=== PATIENT | male | born 1965 | race Caucasian/White ===

== ENCOUNTER 2017-11-21 10:21 | Emergency (ER) | payer SELFPAY ==
[~2017-11-21] VITALS: Ht 162.6 cm; Wt 70.0 kg
[2017-11-21] MEDS ORDERED: ONDANSETRON HCL 4MG/2ML VIAL IV STA (12:18)
[2017-11-21] MEDS ORDERED: SODIUM CHLORIDE 0.9% 1,000 ML IV ONE (12:18)
[2017-11-21 12:48] LABS: BASOPHILS % 1.4 % (0.0-2.0); EOSINOPHILS % 0.9 % (0.0-5.0); HEMATOCRIT. 35.7 % (42.0-52.0); HEMOGLOBIN. 10.9 g/dL (14.0-18.0); LYMPHOCYTES % 38.7 % (20.0-50.0); MEAN CORPUSCULAR HEMOGLOBIN 22.3 pg (28.0-32.0); MEAN CORPUSCULAR VOLUME 73.1 fL (80.0-94.0); MEAN PLATELET VOLUME 7.1 fl (7.4-10.4); MONOCYTES % 7.5 % (2.0-8.0); NEUTROPHILS % 51.5 % (40.0-76.0); PLATELET 248 x1000/uL (130-400); RED BLOOD CELL COUNT 4.88 mill/uL (4.7-6.1); RED CELL DISTRIBUTION WIDTH 19.9 % (11.6-14.6)
[2017-11-21 12:55] LABS: CLARITY URINE CLEAR (CLEAR); COLOR URINE YELLOW (YELLOW); KETONES URINE NEGATIVE (NEGATIVE); LEUKOCYTE ESTERASE URINE NEGATIVE (NEGATIVE); NITRITE URINE NEGATIVE (NEGATIVE); OCCULT BLOOD URINE TRACE (NEGATIVE); PH URINE 5.5 (4.5-8.0); PROTEIN URINE 1+ (NEGATIVE); SPECIFIC GRAVITY URINE 1.017 (1.005-1.030); UROBILINOGEN URINE 0.2 E.U./dL (0.2-1.0)
[2017-11-21 12:56] LABS: INR 1.1
[2017-11-21 12:59] LABS: CHLORIDE 98 mEq/L (98-107)
[2017-11-21] MEDS ORDERED: FAMOTIDINE 20MG/2ML VIAL IV ONE (13:00)
[2017-11-21] MEDS ORDERED: MAGNESIUM/ALUMINUM HYDROXIDE/SIMETHICONE 30ML UDC PO ONE (13:00)
[2017-11-21 13:01] LABS: AMMONIA < 25 uMol/L (<32)
[2017-11-21 13:05] LABS: CREATINE KINASE 233 IU/L (39-308); TROPONIN I < 0.02 ng/mL (0.00-0.04)
[2017-11-21 13:16] LABS: *BARBITURATES SCREEN URINE NEGATIVE (NEGATIVE); *BENZODIAZEPINES SCREEN URINE NEGATIVE (NEGATIVE); *COCAINE SCREEN URINE NEGATIVE (NEGATIVE); METHADONE URINE SCREEN NEGATIVE (NEGATIVE); OPIATES URINE SCREEN NEGATIVE (NEGATIVE); PHENCYCLIDINE URINE SCREEN NEGATIVE (NEGATIVE)
[2017-11-21 13:21] LABS: ETHANOL BLOOD 403 mg/dL
[2017-11-21 14:15] LABS: *AMPHETAMINES SCREEN URINE NEGATIVE (NEGATIVE); CANNABINOID URINE SCREEN NEGATIVE (NEGATIVE)
[2017-11-21 18:35] VITALS: BP 154/96
== END 2017-11-21 19:12 | disposition home or self-care (01) ==
LOC: ER 10:21
DX: K29.20 Alcoholic gastritis without bleeding (principal); R56.9 Unspecified convulsions; E11.9 Type 2 diabetes mellitus without complications; F10.20 Alcohol dependence, uncomplicated; Z87.442 Personal history of urinary calculi; Z87.891 Personal history of nicotine dependence; Y90.8 Blood alcohol level of 240 mg/100 ml or more
CPT/HCPCS: 36415; 70450; 71045; 80053; 80305; 81003; 82140; 82550; 82962; 83880; 84443; 84484; 85025; 85610; 93005; 96361; 96374; 96375; 99285; G0482; J2405; J3490; J7030

== ENCOUNTER 2018-03-20 19:10 | Emergency (ER) | payer SELFPAY ==
[~2018-03-20] VITALS: Ht 167.6 cm; Wt 157.0 kg
[2018-03-20] MEDS ORDERED: SODIUM CHLORIDE 0.9% 1,000 ML IV ONE (23:16)
[2018-03-20] MEDS ORDERED: KETOROLAC 30MG/ML VIAL IV STA (23:16)
[2018-03-21 00:02] LABS: BASOPHILS % 0.3 % (0.0-2.0); EOSINOPHILS % 0.9 % (0.0-5.0); HEMATOCRIT. 29.8 % (42.0-52.0); HEMOGLOBIN. 9.4 g/dL (14.0-18.0); LYMPHOCYTES % 33.2 % (20.0-50.0); MEAN CORPUSCULAR HEMOGLOBIN 24.3 pg (28.0-32.0); MEAN CORPUSCULAR VOLUME 76.8 fL (80.0-94.0); MEAN PLATELET VOLUME 6.7 fl (7.4-10.4); NEUTROPHILS % 55.6 % (40.0-76.0); PLATELET 260 x1000/uL (130-400); RED BLOOD CELL COUNT 3.88 mill/uL (4.7-6.1); RED CELL DISTRIBUTION WIDTH 22.4 % (11.6-14.6)
[2018-03-21 00:08] LABS: CHLORIDE 98 mEq/L (98-107)
[2018-03-21 00:10] LABS: INR 1.1; PROTHROMBIN TIME 11.2 sec (9.4-11.6)
[2018-03-21 00:12] LABS: ETHANOL BLOOD 291 mg/dL
[2018-03-21 04:39] VITALS: BP 115/78
== END 2018-03-21 04:40 | disposition home or self-care (01) ==
LOC: ER 19:10
DX: E11.621 Type 2 diabetes mellitus with foot ulcer (principal); L97.529 Non-pressure chronic ulcer of other part of left foot with unspecified severity; F10.229 Alcohol dependence with intoxication, unspecified; D64.9 Anemia, unspecified; Y90.8 Blood alcohol level of 240 mg/100 ml or more
CPT/HCPCS: 36415; 73630; 80053; 85025; 85610; 96361; 96374; 99285; G0482; J1885; J7030

== ENCOUNTER 2018-04-03 07:57 | Emergency (ER) | payer SELFPAY ==
[~2018-04-03] VITALS: Ht 170.2 cm; Wt 79.0 kg
[2018-04-03 12:19] VITALS: BP 134/78
== END 2018-04-03 12:21 | disposition home or self-care (01) ==
LOC: ER 07:57
DX: Z48.00 Encounter for change or removal of nonsurgical wound dressing (principal); M79.672 Pain in left foot; E11.9 Type 2 diabetes mellitus without complications
CPT/HCPCS: 99281

== ENCOUNTER 2018-06-05 10:16 | Inpatient (IN) | payer SELFPAY ==
[~2018-06-05] VITALS: Ht 160 cm; Wt 73.6 kg
[2018-06-05] MEDS ORDERED: SODIUM CHLORIDE 0.9% 1,000 ML IV ONE (11:08)
[2018-06-05] MEDS ORDERED: KETOROLAC 30MG/ML VIAL IV STA (11:08)
[2018-06-05 12:20] LABS: BASOPHILS % 3.8 % (0.0-2.0); EOSINOPHILS % 3.2 % (0.0-5.0); HEMOGLOBIN. 7.3 g/dL (14.0-18.0); LYMPHOCYTES % 41.8 % (20.0-50.0); MEAN CORPUSCULAR HEMOGLOBIN 26.5 pg (28.0-32.0); MEAN CORPUSCULAR VOLUME 83.8 fL (80.0-94.0); MEAN PLATELET VOLUME 7.6 fl (7.4-10.4); MONOCYTES % 9.5 % (2.0-8.0); NEUTROPHILS % 41.7 % (40.0-76.0); PLATELET 141 x1000/uL (130-400); RED BLOOD CELL COUNT 2.75 mill/uL (4.7-6.1); RED CELL DISTRIBUTION WIDTH 18.3 % (11.6-14.6)
[2018-06-05 12:25] LABS: CHLORIDE 104 mEq/L (98-107)
[2018-06-05 13:00] LABS: ETHANOL BLOOD 423 mg/dL
[2018-06-05] MEDS ORDERED: PANTOPRAZOLE SODIUM 40 MG/VIAL IV ONE (14:45)
[2018-06-05] MEDS ORDERED: HYDROCODONE/ACETAMINOPHEN 5/325MG TABLET PO PRN (15:30)
[2018-06-05] MEDS ORDERED: ONDANSETRON HCL 4MG/2ML INJ IV PRN (15:30)
[2018-06-05] MEDS ORDERED: LORAZEPAM 2MG/ML CPJ IV PRN (15:30)
[2018-06-05] MEDS ORDERED: MAGNESIUM/ALUMINUM HYDROXIDE/SIMETHICONE 30ML UDC PO PRN (15:30)
[2018-06-05] MEDS ORDERED: HYDROCODONE/ACETAMINOPHEN 10/325MG TABLET PO PRN (15:30)
[2018-06-05] MEDS ORDERED: ACETAMINOPHEN 650MG SUPP PR PRN (15:30)
[2018-06-05] MEDS ORDERED: ACETAMINOPHEN 650MG/20.3ML UDC GT PRN (15:30)
[2018-06-05] MEDS ORDERED: ACETAMINOPHEN 325MG TABLET PO PRN (15:30)
[2018-06-05 15:48] LABS: TOTAL IRON BINDING CAPACITY 425 ug/dL (250-450)
[2018-06-05 16:12] LABS: FOLIC ACID (FOLATE) SERUM 15.6 ng/mL (>5.38)
[2018-06-05 16:46] LABS: CLARITY URINE CLEAR (CLEAR); COLOR URINE YELLOW (YELLOW); KETONES URINE NEGATIVE (NEGATIVE); LEUKOCYTE ESTERASE URINE NEGATIVE (NEGATIVE); NITRITE URINE NEGATIVE (NEGATIVE); OCCULT BLOOD URINE TRACE (NEGATIVE); PROTEIN URINE 2+ (NEGATIVE); SPECIFIC GRAVITY URINE 1.002 (1.005-1.030); UROBILINOGEN URINE 0.2 E.U./dL (0.2-1.0)
[2018-06-05] MEDS ORDERED: LORAZEPAM 2MG/ML CPJ ONE (16:58)
[2018-06-05] MEDS ORDERED: CHLORDIAZEPOXIDE 25MG CAPSULE PO ONE (17:00)
[2018-06-05] MEDS ORDERED: LORAZEPAM 2MG/ML CPJ IV ONE (17:00)
[2018-06-05 17:01] LABS: *AMPHETAMINES SCREEN URINE NEGATIVE (NEGATIVE); *BARBITURATES SCREEN URINE NEGATIVE (NEGATIVE); *BENZODIAZEPINES SCREEN URINE NEGATIVE (NEGATIVE); *COCAINE SCREEN URINE NEGATIVE (NEGATIVE); METHADONE URINE SCREEN NEGATIVE (NEGATIVE); OPIATES URINE SCREEN NEGATIVE (NEGATIVE)
[2018-06-05 17:03] LABS: CANNABINOID URINE SCREEN NEGATIVE (NEGATIVE); PHENCYCLIDINE URINE SCREEN NEGATIVE (NEGATIVE)
[2018-06-05 17:05] VITALS: BP 118/61
[2018-06-05 17:30] VITALS: BP 118/61
[2018-06-05 20:00] VITALS: BP 134/80
[2018-06-05] MEDS ORDERED: FOLIC ACID 1 MG, THIAMINE HCL 100 MG, MVI, ADULT NO.1 10 ML in DEXTROSE 5% WATER 1,000 ML IV ONE ×4 (20:00)
[2018-06-05 20:18] LABS: HEMATOCRIT 25.1 % (42.0-52.0); HEMOGLOBIN 7.7 g/dL (14.0-18.0)
[2018-06-05] MEDS: PANTOPRAZOLE SODIUM 40 MG/VIAL IV SCH (20:41)
[2018-06-05] MEDS: CHLORDIAZEPOXIDE 25MG CAPSULE PO SCH (21:16)
[2018-06-06] VITALS (9 sets, daily range): BP systolic 100–145; BP diastolic 60–79
[2018-06-06 00:28] LABS: HEMATOCRIT 21.2 % (42.0-52.0)
[2018-06-06 00:35] LABS: HEMOGLOBIN 6.7 g/dL (14.0-18.0)
[2018-06-06 00:59] LABS: CREATINE KINASE 120 IU/L (39-308)
[2018-06-06 01:00] LABS: CREATINE KINASE MB FRACTION 2.3 ng/mL (0.5-3.6)
[2018-06-06] MEDS: CHLORDIAZEPOXIDE 25MG CAPSULE PO SCH ×3 (05:29→21:11)
[2018-06-06 09:32] LABS: BASOPHILS % 2.5 % (0.0-2.0); EOSINOPHILS % 1.3 % (0.0-5.0); HEMATOCRIT. 22.3 % (42.0-52.0); HEMOGLOBIN. 7.2 g/dL (14.0-18.0); LYMPHOCYTES % 27.7 % (20.0-50.0); MEAN CORPUSCULAR HEMOGLOBIN 26.5 pg (28.0-32.0); MEAN CORPUSCULAR VOLUME 82.5 fL (80.0-94.0); MEAN PLATELET VOLUME 7.5 fl (7.4-10.4); MONOCYTES % 13.1 % (2.0-8.0); NEUTROPHILS % 55.4 % (40.0-76.0); PLATELET 140 x1000/uL (130-400); RED CELL DISTRIBUTION WIDTH 18.2 % (11.6-14.6)
[2018-06-06 09:46] LABS: CHLORIDE 100 mEq/L (98-107)
[2018-06-06] MEDS: PANTOPRAZOLE SODIUM 40 MG/VIAL IV SCH ×2 (09:46→21:11)
[2018-06-06 09:48] LABS: AMMONIA 36 uMol/L (<32)
[2018-06-06 09:57] LABS: CREATINE KINASE MB FRACTION 1.5 ng/mL (0.5-3.6); LDL CHOLESTEROL 83 mg/dL (5-100)
[2018-06-06 09:58] LABS: CREATINE KINASE 118 IU/L (39-308); T4 FREE 0.93 ng/dL (0.76-1.46)
[2018-06-06 10:05] LABS: HDL CHOLESTEROL 133 mg/dL (40-59)
[2018-06-06] MEDS: FERROUS SULFATE 325MG TABLET PO SCH ×2 (12:03→18:12)
[2018-06-06] MEDS: ASCORBIC ACID 500 MG TABLET PO SCH ×2 (12:04→18:12)
[2018-06-06 16:38] LABS: HEMATOCRIT 25.7 % (42.0-52.0); HEMOGLOBIN 8.4 g/dL (14.0-18.0)
[2018-06-07] VITALS: BP 125/76
[2018-06-07 04:00] VITALS: BP 111/77
[2018-06-07] MEDS: CHLORDIAZEPOXIDE 25MG CAPSULE PO SCH ×3 (05:35→21:00)
[2018-06-07 08:00] VITALS: BP 108/65
[2018-06-07 08:07] LABS: AMMONIA 45 uMol/L (<32)
[2018-06-07 08:13] LABS: BASOPHILS % 1.9 % (0.0-2.0); EOSINOPHILS % 2.2 % (0.0-5.0); HEMATOCRIT. 26.8 % (42.0-52.0); HEMOGLOBIN. 8.6 g/dL (14.0-18.0); LYMPHOCYTES % 28.4 % (20.0-50.0); MEAN CORPUSCULAR HEMOGLOBIN 26.6 pg (28.0-32.0); MEAN CORPUSCULAR VOLUME 82.7 fL (80.0-94.0); MEAN PLATELET VOLUME 7.9 fl (7.4-10.4); MONOCYTES % 12.2 % (2.0-8.0); NEUTROPHILS % 55.3 % (40.0-76.0); PLATELET 154 x1000/uL (130-400); RED BLOOD CELL COUNT 3.24 mill/uL (4.7-6.1); RED CELL DISTRIBUTION WIDTH 17.5 % (11.6-14.6)
[2018-06-07 08:24] LABS: CHLORIDE 102 mEq/L (98-107)
[2018-06-07 08:38] LABS: PHOSPHORUS 3.5 mg/dL (2.5-4.9)
[2018-06-07] MEDS: ASCORBIC ACID 500 MG TABLET PO SCH ×3 (08:53→17:53)
[2018-06-07] MEDS: PANTOPRAZOLE SODIUM 40 MG/VIAL IV SCH ×2 (08:53→21:01)
[2018-06-07] MEDS: FERROUS SULFATE 325MG TABLET PO SCH ×3 (08:53→17:53)
[2018-06-07 12:00] VITALS: BP 109/64
[2018-06-07] MEDS ORDERED: MAGNESIUM 2 G PREMIX 50 ML IV ONE (14:00)
[2018-06-07] MEDS ORDERED: POTASSIUM CHLORIDE 20MEQ TABLET SR PO NR (14:00)
[2018-06-07] MEDS ORDERED: MAGNESIUM SULFATE 2 GM in DEXTROSE 5% WATER 50 ML IV NR (15:00)
[2018-06-07] MEDS: LACTULOSE 20G/30ML UDC PO SCH ×2 (15:31→21:01)
[2018-06-07 16:00] VITALS: BP 97/61
[2018-06-07 20:00] VITALS: BP 100/68
[2018-06-08] VITALS: BP 104/64
[2018-06-08 04:00] VITALS: BP 93/67
[2018-06-08] MEDS: CHLORDIAZEPOXIDE 25MG CAPSULE PO SCH ×3 (06:23→21:00)
[2018-06-08] MEDS: LEVOTHYROXINE SODIUM 25MCG TABLET PO SCH (06:23)
[2018-06-08] MEDS: LACTULOSE 20G/30ML UDC PO SCH ×3 (06:23→21:00)
[2018-06-08 06:29] LABS: AMMONIA 37 uMol/L (<32)
[2018-06-08 06:32] LABS: HEMATOCRIT. 29.1 % (42.0-52.0); HEMOGLOBIN. 9.3 g/dL (14.0-18.0); MEAN CORPUSCULAR HEMOGLOBIN 26.8 pg (28.0-32.0); MEAN CORPUSCULAR VOLUME 83.9 fL (80.0-94.0); PLATELET 175 x1000/uL (130-400); RED BLOOD CELL COUNT 3.47 mill/uL (4.7-6.1); RED CELL DISTRIBUTION WIDTH 17.1 % (11.6-14.6)
[2018-06-08 08:01] LABS: CHLORIDE 107 mEq/L (98-107)
[2018-06-08 08:30] VITALS: BP 95/69
[2018-06-08] MEDS: FERROUS SULFATE 325MG TABLET PO SCH ×3 (08:31→17:34)
[2018-06-08] MEDS: ASCORBIC ACID 500 MG TABLET PO SCH ×3 (08:31→17:34)
[2018-06-08] MEDS: PANTOPRAZOLE SODIUM 40 MG/VIAL IV SCH ×2 (08:31→20:59)
[2018-06-08 12:00] VITALS: BP 95/67
[2018-06-08] MEDS ORDERED: POTASSIUM CHLORIDE 20MEQ TABLET SR PO NR (13:00)
[2018-06-08 16:00] VITALS: BP 103/66
[2018-06-08 20:00] VITALS: BP 104/68
[2018-06-09] VITALS: BP 100/65
[2018-06-09 04:00] VITALS: BP 110/67
[2018-06-09 06:09] LABS: HEMATOCRIT. 29.3 % (42.0-52.0); HEMOGLOBIN. 9.3 g/dL (14.0-18.0); MEAN CORPUSCULAR HEMOGLOBIN 26.8 pg (28.0-32.0); MEAN CORPUSCULAR VOLUME 84.8 fL (80.0-94.0); MEAN PLATELET VOLUME 8.3 fl (7.4-10.4); PLATELET 218 x1000/uL (130-400); RED BLOOD CELL COUNT 3.46 mill/uL (4.7-6.1); RED CELL DISTRIBUTION WIDTH 17.5 % (11.6-14.6)
[2018-06-09] MEDS: LACTULOSE 20G/30ML UDC PO SCH ×3 (06:18→21:23)
[2018-06-09] MEDS: LEVOTHYROXINE SODIUM 25MCG TABLET PO SCH (06:18)
[2018-06-09] MEDS: CHLORDIAZEPOXIDE 25MG CAPSULE PO SCH ×3 (06:18→21:23)
[2018-06-09 06:25] LABS: CHLORIDE 108 mEq/L (98-107)
[2018-06-09 06:29] LABS: AMMONIA 63 uMol/L (<32)
[2018-06-09 08:12] VITALS: BP 98/71
[2018-06-09 08:37] LABS: NUCLEATED RED BLOOD CELLS 1 /100 WBC
[2018-06-09 08:41] LABS: PLATELET ESTIMATE NORMAL
[2018-06-09] MEDS: ASCORBIC ACID 500 MG TABLET PO SCH ×3 (09:07→16:15)
[2018-06-09] MEDS: FERROUS SULFATE 325MG TABLET PO SCH ×3 (09:07→16:15)
[2018-06-09] MEDS: PANTOPRAZOLE SODIUM 40 MG/VIAL IV SCH ×2 (09:07→21:23)
[2018-06-09 12:00] VITALS: BP 128/61
[2018-06-09 12:03] LABS: PLATELET ESTIMATE NORMAL
[2018-06-09 16:00] VITALS: BP 102/66
[2018-06-09 20:00] VITALS: BP 108/71
[2018-06-10] VITALS: BP 104/72
[2018-06-10 04:00] VITALS: BP 114/65
[2018-06-10 06:31] LABS: HEMATOCRIT. 28.5 % (42.0-52.0); HEMOGLOBIN. 9.3 g/dL (14.0-18.0); MEAN CORPUSCULAR VOLUME 85.9 fL (80.0-94.0); MEAN PLATELET VOLUME 8.2 fl (7.4-10.4); PLATELET 224 x1000/uL (130-400); RED BLOOD CELL COUNT 3.32 mill/uL (4.7-6.1); RED CELL DISTRIBUTION WIDTH 17.3 % (11.6-14.6)
[2018-06-10 06:40] LABS: AMMONIA 89 uMol/L (<32)
[2018-06-10] MEDS: LACTULOSE 20G/30ML UDC PO SCH ×2 (06:51→14:33)
[2018-06-10] MEDS: FERROUS SULFATE 325MG TABLET PO SCH ×2 (06:52→12:05)
[2018-06-10] MEDS: ASCORBIC ACID 500 MG TABLET PO SCH ×2 (06:52→12:05)
[2018-06-10] MEDS: LEVOTHYROXINE SODIUM 25MCG TABLET PO SCH (06:52)
[2018-06-10] MEDS: CHLORDIAZEPOXIDE 25MG CAPSULE PO SCH ×2 (06:52→14:33)
[2018-06-10 07:00] LABS: CHLORIDE 106 mEq/L (98-107)
[2018-06-10 08:00] VITALS: BP 110/79
[2018-06-10] MEDS: PANTOPRAZOLE SODIUM 40 MG/VIAL IV SCH (08:43)
[2018-06-10 12:00] VITALS: BP 100/71
[2018-06-10 16:00] VITALS: BP 107/85
[2018-06-10 16:14] VITALS: BP 107/85
[2018-06-10] MEDS ORDERED: L25 PO (16:31)
[2018-06-10] MEDS ORDERED: PANT40TA4 MT (16:31)
[2018-06-10] MEDS ORDERED: ASCO500T20 PO (16:31)
[2018-06-10] MEDS ORDERED: LEVO25TA7 PO (16:31)
[2018-06-10] MEDS ORDERED: LACT10SO7 PO (16:31)
[2018-06-10] MEDS ORDERED: FERR325T23 PO (16:31)
[2018-06-10 19:12] LABS: PLATELET ESTIMATE NORMAL
== END 2018-06-10 18:20 | disposition home or self-care (01) | DRG 663 ==
LOC: ER 10:16 → 5WST 14:35 → ENRESERV 15:33
PROVIDERS: ADMIT Internal Medicine; ATTEND Internal Medicine
PROC: 30233N1 Transfusion of Nonautologous Red Blood Cells into Peripheral Vein, Percutaneous Approach (ICD-10-PCS; principal; 2018-06-06)
DX: D50.9 Iron deficiency anemia, unspecified (principal); K85.90 Acute pancreatitis without necrosis or infection, unspecified; E72.20 Disorder of urea cycle metabolism, unspecified; E03.9 Hypothyroidism, unspecified; E11.9 Type 2 diabetes mellitus without complications; F10.229 Alcohol dependence with intoxication, unspecified; J32.9 Chronic sinusitis, unspecified; F41.9 Anxiety disorder, unspecified; F10.239 Alcohol dependence with withdrawal, unspecified; G40.909 Epilepsy, unspecified, not intractable, without status epilepticus; M19.90 Unspecified osteoarthritis, unspecified site; Y90.8 Blood alcohol level of 240 mg/100 ml or more; Z59.0 Homelessness; Z79.84 Long term (current) use of oral hypoglycemic drugs; Z87.891 Personal history of nicotine dependence; Z90.49 Acquired absence of other specified parts of digestive tract
CPT/HCPCS: 36415; 71045; 76700; 80048; 80053; 80061; 80305; 81003; 82140; 82270; 82550; 82553; 82607; 82728; 82746; 82962; 83036; 83540; 83550; 83690; 83735; 83880; 84100; 84439; 84443; 84481; 84484; 85014; 85018; 85025; 86850; 86900; 86920; 93005; 93306; 93970; 96361; 96374; 99285; C9113; G0482; J2060; J3411; J3475; J3490; J7030; J7040; J7050; J7060; J7070; P9016